=== PATIENT | female | born 1985 | race Caucasian/White ===

== ENCOUNTER 2020-09-23 06:59 | Emergency (ER) | payer MEDICAID ==
[~2020-09-23] VITALS: Ht 167.6 cm; Wt 59.0 kg
[2020-09-23 07:12] VITALS: BP 118/69
[2020-09-23] MEDS ORDERED: ALBUTEROL (0.083%) 2.5MG/3ML NEB HHN STA (07:17)
[2020-09-23] MEDS ORDERED: PREDNISONE 20MG TABLET PO STA (07:17)
[2020-09-23] MEDS ORDERED: IPRATROPIUM BROMIDE (0.02%) 0.5MG/2.5ML NEB HHN STA (07:17)
[2020-09-23] MEDS ORDERED: ALBUTEROL (0.5%) 2.5MG/0.5ML NEB HHN ONE (07:48)
[2020-09-23] MEDS ORDERED: IPRATROPIUM BROMIDE (0.02%) 0.5MG/2.5ML NEB ONE (07:48)
== END 2020-09-23 10:42 | disposition home or self-care (01) ==
LOC: ER 06:59
DX: U07.1 COVID-19 (principal); J45.901 Unspecified asthma with (acute) exacerbation; Z88.6 Allergy status to analgesic agent
CPT/HCPCS: 81025; 87635; 94640; 99283; C9803; J7512; Z7610

== ENCOUNTER 2020-10-07 09:54 | Emergency (ER) | payer MEDICAID ==
[~2020-10-07] VITALS: Ht 165.1 cm; Wt 61.0 kg
[2020-10-07 09:59] VITALS: BP 122/84
[2020-10-07] MEDS ORDERED: IPRATROPIUM BROMIDE (0.02%) 0.5MG/2.5ML NEB HHN STA (10:11)
[2020-10-07] MEDS ORDERED: METHYLPREDNISOLONE SOD SUCC 125 MG/2 ML VIAL IV STA (10:11)
[2020-10-07] MEDS ORDERED: ALBUTEROL (0.083%) 2.5MG/3ML NEB HHN STA (10:11)
== END 2020-10-07 12:24 | disposition home or self-care (01) ==
LOC: ER 10:05
DX: J45.901 Unspecified asthma with (acute) exacerbation (principal); Z88.6 Allergy status to analgesic agent
CPT/HCPCS: 71045; 94644; 99285; J2930; Z7610

== ENCOUNTER 2021-10-28 10:14 | Emergency (ER) | payer MEDICAID, OTHER ==
[~2021-10-28] VITALS: Ht 160 cm; Wt 64.0 kg
[2021-10-28 10:22] VITALS: BP 110/76
[2021-10-28] MEDS ORDERED: ONDANSETRON HCL 4MG/2ML INJ IV STA (10:26)
[2021-10-28] MEDS ORDERED: SODIUM CHLORIDE 0.9% 1,000 ML IV ONE (10:30)
[2021-10-28 11:47] LABS: BASOPHILS % 0.5 % (0.0-2.0); EOSINOPHILS % 0.6 % (0.0-5.0); HEMATOCRIT. 39.1 % (36.0-48.0); LYMPHOCYTES % 26.3 % (20.0-50.0); MEAN CORPUSCULAR HEMOGLOBIN 28.6 pg (28.0-32.0); MEAN CORPUSCULAR VOLUME 86.2 fL (81.0-99.0); MEAN PLATELET VOLUME 7.3 fl (7.4-10.4); MONOCYTES % 6.4 % (2.0-8.0); NEUTROPHILS % 66.2 % (40.0-76.0); PLATELET 297 x1000/uL (130-400); RED BLOOD CELL COUNT 4.54 mill/uL (4.2-5.4)
[2021-10-28 11:53] LABS: CHLORIDE 110 mEq/L (98-107)
== END 2021-10-28 17:41 | disposition left against medical advice (07) ==
LOC: ER 10:14
DX: R10.13 Epigastric pain (principal); R11.2 Nausea with vomiting, unspecified; R19.7 Diarrhea, unspecified; J45.909 Unspecified asthma, uncomplicated; Z88.6 Allergy status to analgesic agent
CPT/HCPCS: 36415; 80053; 83690; 85025; 93005; 99284; J7030